=== PATIENT | female | born 1960 | race Caucasian/White ===

== ENCOUNTER 2018-01-20 19:21 | Emergency (ER) | payer OTHER ==
[~2018-01-20] VITALS: Ht 157.5 cm; Wt 81.7 kg
[~2018-01-20 19:21] MED LIST: AMLODIPINE BESY10 MG PO; IBUPROFEN 800800 M1 PO; RANITIDINE; ZITHROMAX1 GM PO
[2018-01-20] MEDS ORDERED: NORCO 5-325 TA1 EACH PO (20:27)
[2018-01-20 21:00] VITALS: BP 130/60
== END 2018-01-20 21:00 | disposition home or self-care (01) ==
LOC: M.ERS 19:21
DX: S52.592A Other fractures of lower end of left radius, initial encounter for closed fracture (principal); S52.615A Nondisplaced fracture of left ulna styloid process, initial encounter for closed fracture; I10 Essential (primary) hypertension; Z88.6 Allergy status to analgesic agent; Z90.710 Acquired absence of both cervix and uterus; Z98.890 Other specified postprocedural states; W01.0XXA Fall on same level from slipping, tripping and stumbling without subsequent striking against object, initial encounter; Y93.89 Activity, other specified; Y92.89 Other specified places as the place of occurrence of the external cause; Y99.8 Other external cause status

== ENCOUNTER → 2020-10-19 | Outpatient (CLI) | payer OTHER ==
[~2020-10-19] MED LIST changes: +NORCO 5-325 TA1 EACH PO
--- NOTE | ~2020-10-19 | OP ---
[place] [address] OPERATIVE REPORT Name: DONITA SEGUNDO Room: [facility]#: [id number] Admission: 10/19/20 Attend Phys: George Marmolejo DO Discharge: Date of : 64 Report #: [id number] THIS REPORT FOR: cc: Morgan Caldwell Russell J. DO Paul,George Romero DO ~ DOC #: [id number] George Marmolejo DO DATE OF SURGERY: 10/19/2020 SURGEON: George Marmolejo DO ASSISTANTS: 1. Juan Velez DO 2. EVAN Crowell. PREOPERATIVE DIAGNOSIS: Right de Quervain's tenosynovitis. POSTOPERATIVE DIAGNOSIS: Right de Quervain's tenosynovitis. OPERATION PERFORMED: Right first dorsal compartment release. INDICATIONS: The patient is a 59-year-old female who has been dealing with pain with ADLs and all active gripping and manipulation tasks with her right upper extremity for greater than 3 months. This pain is refractory to nonsteroidal anti-inflammatories, corticosteroid injections, splinting as well as activity modifications. The risks, benefits, indications, alternatives to surgical release of the first dorsal compartment were discussed preoperatively. These risks include but are not limited to: Pain, infection, injury to neurovascular structures, paresthesias, numbness, tingling, inability to return to prior functional levels, recurrence of symptoms, need for repeat surgery, tourniquet pain, DVT, myocardial arrhythmias, myocardial infarction, stroke, , as well as any and all risks attributable to general anesthesia. The patient verbalizes understanding of these risks and provides informed consent to proceeding with surgical release of the first dorsal compartment of the right upper extremity. PREOPERATIVE ANTIBIOTICS: IV 2 grams Ancef. INTRAOPERATIVE FINDINGS: Thickened lining of the first dorsal compartment tendon sheath and synovitis surrounding the multiple tendon slips of the abductor pollicis longus and extensor pollicis brevis tendons. DESCRIPTION OF PROCEDURE: The patient was met in the preoperative bay. The correct operative extremity was marked with the surgeon's initials. All the patient's questions were answered. Informed [place] [address] OPERATIVE REPORT Name: RATNADONITA L Room: [facility]#: [id number] Admission: 10/19/20 Attend Phys: George Marmolejo DO Discharge: Date of : 64 Report #: [id number] The patient was transferred back to the operative suite and onto a well-padded operative table and general anesthesia was induced. A tourniquet was placed around the right upper extremity in a nonsterile fashion. The right upper extremity was then prepped and draped in the normal sterile fashion up to the level of the tourniquet at the mid upper arm. A surgical timeout was performed indicating the correct patient, operative extremity including laterality, and operation to be performed. All present were in agreement with proceeding. An Esmarch was used to exsanguinate the right upper extremity and the tourniquet was then inflated to 250 mmHg and deflated after 19 minutes at the end of the procedure. The surgical site was marked with a skin marker overlying the radial styloid and first dorsal compartment. A skin incision was used with a 15 blade scalpel just down below the dermis. Scissors were then used to bluntly dissect through the subcutaneous tissue and superficial fascia to avoid injury to the superficial radial nerve. Blunt dissection was then carried down to the level of the first dorsal compartment. The thickened overlying tendon sheath of the first dorsal compartment was incised sharply with scissors and carried out distally and proximally until the tendon sheath was fully released on the dorsal aspect to avoid volar subluxation. Blunt retractors were used to excurse all the tendon slips of the APL and EPB tendons and any redundant synovial tissue was excised to ensure that there is no entrapment of these tendons remaining. Following satisfactory release, the surgical field was thoroughly irrigated with normal saline. The subcutaneous tissue was then reapproximated using 4-0 Vicryl and the subcuticular skin was reapproximated using a running 3-0 Stratafix, Monocryl. The skin was then glued with Exofin skin glue. A 10 mL of Naropin was injected about the surgical field for local anesthesia. The dressings then consisted of 4 x 4 gauze, fluffs between the fingers, sterile 4 x 4 gauze overlying the surgical site, Kerlix gauze and then a 3-inch Marcelo wrap. Again, the tourniquet was deflated after 19 minutes total tourniquet time. The sponge and instrument counts were correct x 2. There were no specimens. Blood loss was minimal. The patient was then successfully reversed from general anesthesia and transferred off the operative table and to PACU in stable condition. I attest that Dr. George Marmolejo was present in the operative suite for all critical aspects of the case. DISPOSITION: Following clearance of PACU protocol, the patient will be discharged home with assistance for the next 24 hours. She is instructed to maintain her surgical dressing clean, dry and intact for 3 days before removing. She can then place waterproof bandages over surgical site for showering. She will follow up in 2 weeks for clinical reevaluation and surgical incision site check. George Marmolejo, DO [facility] [address] [address] OPERATIVE REPORT Name: DONITA SEGUNDO Room: [facility] Sharma#: [id number] Admission: 10/19/20 Attend Phys: George Marmolejo DO Discharge: Date of : 64 Report #: [id number] By: [id number] Marmolejo DO /stacy
== END ==
LOC: M.LAB 10:50
PROVIDERS: ATTEND Orthopaedic Surgery
DX: Z01.812 Encounter for preprocedural laboratory examination (principal); M65.4 Radial styloid tenosynovitis [de Quervain]; Z20.822 Contact with and (suspected) exposure to COVID-19